=== PATIENT | female | born 1995 | race Two or more races ===

== ENCOUNTER 2017-01-07 15:31 | Emergency (ER) | payer SELFPAY ==
[~2017-01-07] VITALS: Ht 154.9 cm; Wt 59.0 kg
--- NOTE | 2017-01-07 15:45 | NUR ---
DR GALLAGHER AT BEDSIDE FOR EVAL.
--- NOTE | 2017-01-07 15:55 | NUR ---
PT STATES NO CHANCE OF BEING WILL SIGN WAIVER. RADIOLOGY AWARE.
--- NOTE | 2017-01-07 18:24 | NUR ---
SALVADOR BANDAGE APPLIED TO L KNEE AND ANKLE. PT IS D/C IN STABLE CONDITION.
[2017-01-07 18:29] VITALS: BP 112/70
== END 2017-01-07 18:30 | disposition home or self-care (01) ==
LOC: ER 15:33
DX: M25.562 Pain in left knee (principal); M25.572 Pain in left ankle and joints of left foot
CPT/HCPCS: 73562; 73590-TC; 73610-TC; 73630-TC; A4606; Q0162; Z7610